=== PATIENT | female | born 1960 | race Two or more races ===

== ENCOUNTER 2018-07-19 08:04 | Emergency (ER) | payer MEDICARE ==
[2018-07-19] MEDS ORDERED: ONDANSETRON PF 4 MG/2 ML VIAL. IV ONE (08:30)
[2018-07-19 08:46] LABS: BASO # 0.1 x10^3/uL (0.0-0.2); BASO % 0 % (0-3); EOS # 0.1 x10^3/uL (0.0-0.7); EOS % 1 % (0-3); HEMATOCRIT 43.6 % (36.0-47.0); HEMOGLOBIN 14.8 g/dL (12.0-15.5); LYMPH # 0.6 x10^3/uL (1.0-4.8); LYMPH % 5 % (24-48); MEAN CORPUSCULAR HEMOGLOBIN 30 pg (25-35); MEAN CORPUSCULAR HGB CONC 34 g/dL (31-37); MEAN CORPUSCULAR VOLUME 89 fL (79-100); MONO # 0.5 x10^3/uL (0.0-1.1); MONO % 3 % (0-9); NEUT # 12.8 x10^3uL (1.8-7.7); NEUT % 91 % (31-73); PLATELET COUNT 290 x10^3/uL (140-400); RED BLOOD COUNT 4.88 x10^6/uL (3.50-5.40); RED CELL DISTRIBUTION WIDTH 13.9 % (11.5-14.5); WHITE BLOOD COUNT 14.1 x10^3/uL (4.0-11.0)
--- NOTE | 2018-07-19 08:57 | PHYS DOC ---
Adult General Chief Complaint Chief Complaint: NAUSEA/VOMITING/DIARRHEA HPI HPI Patient is a 57 year old female who presents with complaint of nausea, vomiting , and diarrhea. Patient states her symptoms started suddenly last night. Has had numerous episodes of both vomiting and diarrhea since onset. Has not been able to tolerate any oral intake since onset of symptoms. Denies any pain in her abdomen. She does note that she has been having numbness and discomfort along the right side of her shoulder and upper extremity. States that this has been going on for several months and has not changed since onset of her new symptoms. Denies any previous cardiac history. No known sick contacts. No recent travel and no recent treatment with antibiotics. Review of Systems Review of Systems Constitutional: Fatigue, denies fever or chills[] Eyes: Denies change in visual acuity, redness, or eye pain [] HENT: Denies nasal congestion or sore throat [] Respiratory: Denies cough or shortness of breath [] Cardiovascular: Denies chest pain or edema] GI: Nausea, vomiting, diarrhea, denies abdominal pain or bloody stools[] : Denies dysuria or hematuria [] Musculoskeletal: Denies back pain or joint pain [] Integument: Denies rash or skin lesions [] Neurologic: Numbness in right arm, denies focal weakness or headache[] All other systems were reviewed and found to be within normal limits, except as documented in this note. Current Medications Current Medications Current Medications Medications (Trade) Dose Ordered Sig/Aaron Start Time Stop Time Status Last Admin Dose Admin Famotidine (Pepcid Vial) 20 mg 1X ONCE 07/19/18 08:30 07/19/18 08:31 UNV Ondansetron HCl (Zofran) 4 mg 1X ONCE 07/19/18 08:30 07/19/18 08:31 UNV Sodium Chloride 1,000 ml @ 1,000 mls/hr Q1H 07/19/18 08:18 07/19/18 09:17 UNV Allergies Allergies Allergies Coded Allergies Type Severity Reaction Last Updated Verified No Known Drug Allergies 07/19/18 No Physical Exam Physical Exam Constitutional: Alert, afebrile, appears ill. [] HENT: Normocephalic, atraumatic, bilateral external ears normal, oropharynx moist, no oral exudates, nose normal. [] Eyes: PERRLA, EOMI, conjunctiva normal, no discharge. [] Neck: Normal range of motion, no tenderness, supple, no stridor. [] Cardiovascular:Heart rate regular rhythm, no murmur [] Lungs & Thorax: Bilateral breath sounds clear to auscultation [] Abdomen: Bowel sounds normal, soft, no tenderness, no masses, no pulsatile masses. [] Skin: Warm, dry, no erythema, no rash. [] Back: No tenderness, no CVA tenderness. [] Extremities: No tenderness, no cyanosis, no clubbing, ROM intact, no edema. [] Neurologic: Alert and oriented X 3, normal motor function, normal sensory function, no focal deficits noted. [] Current Patient Data Vital Signs Vital Signs Date Time Temp Pulse Resp B/P (MAP) Pulse Ox O2 Delivery O2 Flow Rate FiO2 07/19/18 09:10 97.6 63 20 100 Room Air Lab Results Laboratory Tests Test 07/19/18 08:34 White Blood Count 14.1 x10^3/uL (4.0-11.0) H Red Blood Count 4.88 x10^6/uL (3.50-5.40) Hemoglobin 14.8 g/dL (12.0-15.5) Hematocrit 43.6 % (36.0-47.0) Mean Corpuscular Volume 89 fL (79-100) Mean Corpuscular Hemoglobin 30 pg (25-35) Mean Corpuscular Hemoglobin Concent 34 g/dL (31-37) Red Cell Distribution Width 13.9 % (11.5-14.5) Platelet Count 290 x10^3/uL (140-400) Neutrophils (%) (Auto) 91 % (31-73) H Lymphocytes (%) (Auto) 5 % (24-48) L Monocytes (%) (Auto) 3 % (0-9) Eosinophils (%) (Auto) 1 % (0-3) Basophils (%) (Auto) 0 % (0-3) Neutrophils # (Auto) 12.8 x10^3uL (1.8-7.7) H Lymphocytes # (Auto) 0.6 x10^3/uL (1.0-4.8) L Monocytes # (Auto) 0.5 x10^3/uL (0.0-1.1) Eosinophils # (Auto) 0.1 x10^3/uL (0.0-0.7) Basophils # (Auto) 0.1 x10^3/uL (0.0-0.2) EKG EKG Not performed[] Radiology/Procedures Radiology/Procedures [address] [address] IMAGING REPORT Signed PATIENT: INGRID COY ACCOUNT: [id number] : 1960 LOCATION: ER AGE: 57 SEX: F EXAM STATUS: REG ER ORD. PHYSICIAN: KHAI ESCUDERO MD REASON: vomiting PROCEDURE: ACUTE ABDOMEN SERIES Acute Abdominal Series: 07/19/2018 8:38 AM Reason for study: ACUTE ABD SERIES, -VOMITING AND SEVERE DIARRHEA SINCE LAST NIGHT, PAIN IN RIGHT ARM. Comparison studies: None available. Technique: Frontal view of the chest was obtained along with supine and upright views of the abdomen. Findings: Nonobstructive bowel gas pattern. No air fluid levels or free air. Cholecystectomy clips are identified in the right upper quadrant abdomen. No portal venous gas or pneumatosis intestinalis. Suspected phleboliths are identified in the left hemipelvis. The lungs are clear without acute consolidative opacity. No pleural effusion or pneumothorax. The cardiac and mediastinal contours are normal. Visualized osseous structures are intact. IMPRESSION: 1. Nonobstructed bowel gas pattern. 2. No acute cardiopulmonary findings. 3. Suspected phleboliths are identified within the left hemipelvis. Correlate for signs and symptoms of obstructive uropathy as a distal ureteral calculus is a differential consideration. Electronically signed by: Elvi Pleitez MD (07/19/2018 8:59 AM) [id number] DICTATED AND SIGNED BY: ELVI PLEITEZ MD DATE: 07/19/18 0859 CC: KHAI ESCUDERO MD; PCP,NO ~ [] Course & Med Decision Making Course & Med Decision Making Pertinent Labs and Imaging studies reviewed. (See chart for details) Patient was given IV fluids, Pepcid, and Zofran. Patient reports improvement symptoms. Tolerating oral intake at this time. Noted to have mildly elevated CK and bilirubin levels which may be secondary to dehydration from numerous episodes of vomiting and diarrhea. Patient continues to deny any pain or shortness of breath at this time. Symptoms appear consistent with viral gastroenteritis. We'll continue with use of Pepcid and Zofran for outpatient therapy and recommended follow-up with primary doctor in 1 week for reevaluation. Advised to have a comprehensive metabolic panel rechecked in 1-2 weeks. Ensure improvement and bilirubin levels. If this does not improve I did recommend that the patient have further investigation as to the cause of the elevated bilirubin levels. Recommended return to emergency department for any worsening symptoms. Patient voiced understanding and in agreement with treatment plan.[] Dragon Disclaimer Dragon Disclaimer This electronic medical record was generated, in whole or in part, using a voice recognition dictation system. Departure Departure: Impression: Primary Impression: Nausea and vomiting Additional Impressions: Diarrhea Dehydration Total bilirubin, elevated Disposition: 01 HOME, SELF-CARE Condition: IMPROVED Referrals: PCP,ABBEY (PCP) Patient Instructions: Bilirubin, Dehydration, Adult, Diarrhea, Nausea and Vomiting Additional Instructions: Your bilirubin level was found to be elevated at today's visit. This is believed to be due to dehydration from excessive vomiting and diarrhea. I expect this to improve with oral hydration, however I do recommend that you follow-up with a primary physician in the next 1-2 weeks for reevaluation. He will need to have a repeat serum comprehensive metabolic panel drawn to ensure that this level returns to normal. If this does not return to normal, you may need to have further workup which can be ordered by your primary doctor. Return to the emergency department for any worsening symptoms. Scripts Ondansetron (ONDANSETRON ODT) 4 Mg Tab.rapdis 1 TAB PO PRN Q6-8HRS PRN for NAUSEA/VOMITING, #20 TAB Prov: KHAI ESCUDERO MD 07/19/18 Famotidine (PEPCID) 20 Mg Tablet 1 TAB PO BID, #30 TAB 0 Refills Prov: KHAI ESCUDERO MD 07/19/18 Problem Qualifiers Primary Impression: Nausea and vomiting Vomiting type: unspecified Vomiting Intractability: non-intractable Qualified Codes: R11.2 - Nausea with vomiting, unspecified Additional Impressions: Diarrhea Diarrhea type: presumed infectious Qualified Codes: R19.7 - Diarrhea, unspecified KHAI ESCUDERO MD Jul 19, 2018 08:57
[2018-07-19] MEDS ORDERED: IV NORMAL SALINE 1,000ML 1,000 ML IV SCH (09:00)
--- NOTE | 2018-07-19 09:02 | RAD ---
Acute Abdominal Series: 07/19/2018 8:38 AM Reason for study: ACUTE ABD SERIES, -VOMITING AND SEVERE DIARRHEA SINCE LAST NIGHT, PAIN IN RIGHT ARM. Comparison studies: None available. Technique: Frontal view of the chest was obtained along with supine and upright views of the abdomen. Findings: Nonobstructive bowel gas pattern. No air fluid levels or free air. Cholecystectomy clips are identified in the right upper quadrant abdomen. No portal venous gas or pneumatosis intestinalis. Suspected phleboliths are identified in the left hemipelvis. The lungs are clear without acute consolidative opacity. No pleural effusion or pneumothorax. The cardiac and mediastinal contours are normal. Visualized osseous structures are intact. IMPRESSION: 1. Nonobstructed bowel gas pattern. 2. No acute cardiopulmonary findings. 3. Suspected phleboliths are identified within the left hemipelvis. Correlate for signs and symptoms of obstructive uropathy as a distal ureteral calculus is a differential consideration. Electronically signed by: Thalia Pleitez MD (07/19/2018 8:59 AM) [id number]
[2018-07-19 09:07] LABS: ALBUMIN 4.7 g/dL (3.4-5.0); ALBUMIN/GLOBULIN RATIO 1.1 (1.0-1.7); CALCIUM 9.8 mg/dL (8.5-10.1); CREATININE 0.7 mg/dL (0.6-1.0); GFR 86.6; POTASSIUM 3.8 mmol/L (3.5-5.1); TOTAL BILIRUBIN 1.3 mg/dL (0.2-1.0); TOTAL PROTEIN 8.8 g/dL (6.4-8.2)
[2018-07-19] MEDS ORDERED: FAMOTIDINE 20 MG/2 ML VIAL IVP ONE (09:30)
[2018-07-19 09:40] VITALS: BP 130/80
[2018-07-19] MEDS ORDERED: FAMO-63 PO (09:57)
[2018-07-19] MEDS ORDERED: ONDA4TAB12 PO (09:57)
--- NOTE | 2018-07-19 17:58 | EKG ---
[address] [address] Test Date: 2018-07-19 Test Time: 08:29:56 Pat Name: INGRID COY Department: Room: Gender: F Fnp: ARMANDO : 1960 Requested By: KHAI ESCUDERO Order Number: [id number] Reading MD: Houston Mckenzie MD Measurements Intervals [place] Rate: 75 P: 59 [place]: 130 QRS: 44 QRSD: 82 T: 26 QT: 358 QTc: 402 Interpretive Statements SINUS RHYTHM Electronically Signed On 07-21-2018 10:08:04 CDT by Houston Mckenzie MD
== END 2018-07-19 10:15 | disposition home or self-care (01) ==
LOC: ER 08:04
DX: E86.0 Dehydration (principal); E80.6 Other disorders of bilirubin metabolism; R20.0 Anesthesia of skin
CPT/HCPCS: 36415; 74022; 80053; 82553; 83690; 84484; 85025; 93005; 96361; 96374; 96375; 99284; J2405; J3490; J7030